=== PATIENT | male | born 1945 | race Caucasian/White ===

== ENCOUNTER 2017-08-13 13:16 | Emergency (ER) | payer MEDICARE, BC, OTHER ==
[~2017-08-13 13:16] MED LIST: ACE3 PO; ALB18R INH; BUPR-156 PO; CEP500 PO; ELET20TA2 PO; FLUT1DIS28 IH; LISI-368 PO; LOSA50TA72 PO; OMEP-137 PO; PEG31POW PO; PRAV20TA66 PO; SUMA100T33 PO; SUMA4PEN3 SQ
[2017-08-13] MEDS ORDERED: ENT KIT ONE (13:24)
--- NOTE | 2017-08-13 13:39 | ER Report ---
History and Physical Time Seen By MD: 13:29 Hx. of Stated Complaint: PATIENT STATES THAT ABOUT 20 MIN AGO HIS NOSE JUST STARTED TO BLEED IN THE LEFT NARE; STATES THAT HE DID NOT PICK NOR BLOW IS NOSE IT JUST STARTED BLEEDING HPI/ROS CHIEF COMPLAINT: Epistaxis HISTORY OF PRESENT ILLNESS: 71-year-old male patient presents to emergency room with complaint of epistaxis. Patient has had a bloody nose a week ago, which resulted home. He states that he was working on a computer at his home today and spontaneously developed a bloody nose. Patient states that he was not causing any trauma to the nose. States he did not want his nose, he was not picking his nose. He states that he applied pressure and was unable to get the bleeding stopped. He became concerned because he was home alone and came into the emergency room for further evaluation. Allergies: Coded Allergies: No Known Drug Allergies (Verified , 11/17/13) Home Meds Reported Medications Pravastatin Sodium (PRAVASTATIN SODIUM) 20 Mg Tablet, 20 MG PO QHS 11/17/13 Fluticasone/Salmeterol (ADVAIR 250-50 DISKUS) 1 Each Disk.w.dev, 1 EACH IH PRN 11/17/13 Albuterol Sulfate (VENTOLIN HFA) 18 Gm Inh, 1-2 PUFF INH PRN, INH 11/12/13 Sumatriptan Succinate (SUMATRIPTAN SUCCINATE) 100 Mg Tablet, 100 MG PO PRN 11/12/13 Omeprazole (OMEPRAZOLE) 20 Mg Tablet.dr, 20 MG PO QDAY TAKE ONE TABLET BY MOUTH ONCE A DAY 11/12/13 Bupropion Hcl (BUPROPION HCL SR) 150 Mg Tablet.er, 150 MG PO QDAY, TAB TAKE 1 TABLET BY MOUTH EVERY DAY 11/12/13 Losartan Potassium (LOSARTAN POTASSIUM) 50 Mg Tablet, 50 MG PO QDAY 11/12/13 Reviewed Nurses Notes: Yes Hx Smoking: No Hx Alcohol Use: No Constitutional Vital Sign - Last 24 Hours 08/13/17 08/13/17 08/13/17 08/13/17 13:24 13:26 13:30 13:46 Temp 98.8 Pulse 102 91 Resp 19 B/P (MAP) 162/98 (119) 148/84 148/84 (105) Pulse Ox 93 91 O2 Delivery Room Air 08/13/17 08/13/17 08/13/17 5/8/18 14:00 14:05 14:30 14:35 Pulse 81 89 B/P (MAP) 143/86 (105) 145/84 (104) Pulse Ox 93 91 08/13/17 08/13/17 15:04 15:07 Pulse 87 B/P (MAP) 134/83 (100) 134/83 (100) Pulse Ox 92 O2 Delivery Room Air Physical Exam General appearance: Alert no distress. Respiratory: Chest is non tender, lungs are clear to auscultation. Cardiac: Regular rate and rhythm. ENT: Patient does have significant amounts of bleeding from the left nare. DIFFERENTIAL DIAGNOSIS: After history and physical exam differential diagnosis was considered for epistaxis. Medical Decision Making ED Course/Re-evaluation ED Course Patient was admitted to an exam room, history of physical or pain. Differential diagnoses were considered. On examination patient has significant amounts of bleeding from the left nare. Patient was holding a towel over his face related to the room and was bleeding to that. I did remove the tile and placed a nasal clamp. Patient tolerated that well. I did watch him for 5 minutes and removed it. There is not having any bleeding at that time. I did replace the clamp and left it for 15 minutes. After which time I came back and removed it again he was not bleeding. At that time I left it off and washed him for several minutes. He had no spontaneous return of bleeding. I asked nurse to clean up his face and have him gently blow his nose. He was able to express out a significant amount of clotting and again had no spontaneous bleeding at that time. We'll go ahead and discharge patient home at this time. He is return to emergency room if condition worsens. Patient was given a couple of nasal clamps to use at home if he has any more trouble. We did discuss continue with the hydration as well as using Wilmore gel to help moisten the mucus mucous membranes. Patient verbalized understanding and agreement with plan. Decision to Disposition Date: August 13, 2017 Decision to Disposition Time: 14:51 Depart Departure Latest Vital Signs Vital Signs Date Time Temp Pulse Resp B/P (MAP) Pulse Ox O2 Delivery O2 Flow Rate FiO2 08/13/17 15:07 87 134/83 (100) 92 Room Air 08/13/17 13:26 98.8 19 Impression: Primary Impression: Epistaxis Condition: Improved Disposition: HOME OR SELF-CARE Patient Instructions: Nosebleed (ED) Additional Instructions: Continue with current medications. Follow up with your primary care provider. Continue using the Humidifier at night. You can also use Wilmore gel, can be bought in any pharmacy, and apply it into the nose to moisten the mucous membranes. Return to the ER if condition worsens. LI VALENTINE August 13, 2017 13:39
[2017-08-13 15:07] VITALS: BP 134/83
== END 2017-08-13 15:10 | disposition home or self-care (01) ==
LOC: ER 13:29
DX: R04.0 Epistaxis (principal)
CPT/HCPCS: 99282